=== PATIENT | female | born 1975 | race Caucasian/White ===

== ENCOUNTER → 2017-03-22 | Outpatient (CLI) | payer MEDICAID | LOC: MW.CHFP 15:29 | PROVIDERS: ATTEND Family Medicine | DX: R35.0 Frequency of micturition (principal) | CPT/HCPCS: 81001; 87086 ==

== ENCOUNTER → 2017-03-24 | Outpatient (CLI) | payer MEDICAID ==
[2017-03-24 09:40] LABS: CHLORIDE,CL 107 mmol/L (98-110); SODIUM,NA 140 mmol/L (136-146)
--- NOTE | 2017-03-24 20:19 | US ---
EXAM DATE: 03/24/17 PATIENT'S AGE: 41 Patient: VITA REEVES Facility: [place], [place] Site Site : [id number] Study: US Abdomen [id number]/12/2017 9:54:48 AM Ordering Physician: KODAK GARCIA Final Report: HISTORY: Right upper quadrant pain, known cirrhosis. Technique: Complete abdominal ultrasound. Comparison: No prior. Findings: Pancreatic tail is obscured by bowel gas as is a portion of the posterior head of the pancreas. Visualized portions of pancreas are unremarkable. Liver size and echogenicity are within normal limits. There is no focal hepatic mass. No intrahepatic or extrahepatic biliary ductal dilatation. The extrahepatic bile duct measures 2 mm in diameter. Gallbladder is normal without sludge, stones, wall thickening or pericholecystic fluid. Spleen size within normal limits at 10.9 cm. Right and left kidneys measure 10.9 and 11.3 cm in size, respectively. Kidneys demonstrate normal cortical thickness and cortical echogenicity. There is no renal mass. No shadowing urinary calculus seen. No hydronephrosis. No abdominal ascites. No abdominal aortic aneurysm. IVC as visualized appears patent. Impression: Unremarkable complete abdominal ultrasound. Dictated by Guru Chauhan MD @ Mar 24 2017 11:12AM (Electronic Signature) Report Signed by Proxy. HENRIETTA
== END ==
LOC: MW.US 08:41
PROVIDERS: ATTEND Family Medicine
DX: R10.11 Right upper quadrant pain (principal); E16.2 Hypoglycemia, unspecified; D47.3 Essential (hemorrhagic) thrombocythemia; D50.9 Iron deficiency anemia, unspecified; R41.3 Other amnesia; R42 Dizziness and giddiness; E83.50 Unspecified disorder of calcium metabolism; N92.0 Excessive and frequent menstruation with regular cycle
CPT/HCPCS: 36415; 76700; 76700-26; 80053; 82607; 82652; 82728; 82746; 82951; 83036; 83525; 83550; 84443; 85027; 85045; 85610

== ENCOUNTER 2017-06-14 07:37 | Day surgery (SDC) | payer MEDICAID, OTHER ==
[~2017-06-14 07:37] MED LIST: Lactated Ringers 1,000 ML IV SCH; ceFAZolin 2 GM in Premix Bag 1 BAG IV ONE
[2017-06-14] MEDS ORDERED: Bupivacaine 0.5% 30 ML SDV ONE (08:24)
[2017-06-14] MEDS ORDERED: Lidocaine 1% 20 ML MDV ONE (08:24)
[2017-06-14] MEDS ORDERED: Lidocaine 2% 5 ML SDV ONE (08:41)
[2017-06-14] MEDS ORDERED: Propofol 200 MG/20 ML SDV ONE ×3 (08:41→11:32)
[2017-06-14] MEDS ORDERED: Midazolam 1 MG/ML 2 ML SDV ONE (08:42)
[2017-06-14] MEDS ORDERED: fentaNYL 250 MCG/5 ML SDV ONE (08:42)
[2017-06-14] MEDS ORDERED: fentaNYL 100 MCG/2 ML SDV ONE (08:42)
[2017-06-14] MEDS ORDERED: HYDROmorphone 2 MG/ML Syringe ONE (10:05)
[2017-06-14] MEDS ORDERED: Neostigmine Methylsulfate 1 MG/ML 5 ML Syringe ONE (10:14)
--- NOTE | 2017-06-14 10:16 | PN ---
Preoperative Progress Note IDENTIFICATION: The patient is a 41-year-old female. PREOPERATIVE DIAGNOSIS: Fracture of distal fibula right ankle. PLANNED PROCEDURE: Open reduction and internal fixation of fracture of distal fibula right ankle. CONSENT: Signed and in the chart. ANESTHESIA: General. The patient confirms n.p.o. since midnight. HISTORY AND PHYSICAL: Completed by Dr. Ley and Danay with both signing off on the history and physical exam with no contraindications to surgery. ALLERGIES: Latex. MEDICATIONS: 1. Anoro Ellipta 62.5-25 inhalation aerosol daily. 2. Furosemide 40 mg oral tablet, 1 tab daily. 3. Gabapentin 300 mg oral capsule 1 capsule 3 times a day. 4. Iron tab 1 tablet 3 times a day. 5. Lactulose encephalopathy 10 g/15 mL oral solution, take 15 mL daily p.r.n. 6. Oxycodone HCl 5 mg oral tablet, 1 tab daily every 8 hours p.r.n., the patient says sometimes 1/2 to 1 tablet. 7. Pantoprazole sodium 40 mg oral tablet delayed release, 1 tablet daily. 8. Spironolactone 100 mg oral tablet, 1 tab daily. 9. Super B complex tab, 1 tab daily. 10.Vitamin C 1000 mg oral tablet, 1 tab daily. 11.Vitamin D3 5000 unit oral tab, 1 tab daily. 12.Xifaxan 550 mg oral tablet, 1 tab twice a day. PAST MEDICAL HISTORY: The patient has an extensive past medical history including histories of abdominal pain in the right upper quadrant, alcohol use disorder in sustained remission, mild COPD, muscle cramps, disorder of the bodies use of calcium, dysuria, cirrhosis, constipation, dizziness, headache, thrombocytosis, urinary frequency, vaginal bleeding, joint pain in the elbow, microcytic anemia postoperative state, right-sided back pain, and vulvar lesion. PAST SURGICAL HISTORY: 1992, back surgery due to trauma, 2 C-sections, history of gastric surgery for morbid obesity in 2002, history of hand surgery for fracture, 7 knee surgeries combined between left and right knees, and history of tonsillectomy. LABORATORY DATA: White blood cell 10.16, hemoglobin 15.5, hematocrit 46.4, and platelet count 293. Sodium 137, potassium 5.0, chloride 99, CO2 of 27, BUN 19, creatinine 0.8. Random glucose 75. INR 1.11. Chest x-ray; has no acute changes and EKG was normal sinus rhythm. The patient presents for open reduction and internal fixation of right fibular fracture surgery today. No contraindications to surgery noted. No guarantees given or implied. KULWANT SANTIAGO /[id number]
--- NOTE | 2017-06-14 11:13 | PCM.PREANE ---
Preanesthetic Assessment - Anesthesia/Transfusion/Family Hx Anesthesia History: Prior Anesthesia Without Reaction Other Type of Anesthesia Reaction Comment: states her "mother and herself has swelling after lengthy surgeries" Family History of Anesthesia Reaction: No Transfusion History: Prior Transfusion Without Reaction Intubation History: Unknown - Review of Systems General: No Symptoms Pulmonary: No Symptoms Cardiovascular: No Symptoms Gastrointestinal: No Symptoms Neurological: No Symptoms Other: Reports: None - Physical Assessment Height: 1.63 m Weight: 71.668 kg ASA Class: 3 Mental Status: Alert & Oriented x3 Airway Class: Mallampati = 2 Dentition: Reports: Normal Dentition Thyro-Mental Finger Breadths: 3 Mouth Opening Finger Breadths: 3 ROM/Head Extension: Full Lungs: Clear to Auscultation, Normal Respiratory Effort Cardiovascular: Regular Rate, Regular Rhythm - Lab Values: Laboratory Last Values Urine HCG, Qual NEGATIVE (NEGATIVE) 06/14/17 07:41 - Allergies Allergies/Adverse Reactions: Allergies Allergy/AdvReac Type Severity Reaction Status Date / Time latex Allergy Anaphylactic Verified 09/12/16 11:54 Shock - Blood Blood Available: No - Anesthesia Plan Pre-Op Medication Ordered: None - Acknowledgements Anesthesia Type Planned: General Anesthesia Pt an Appropriate Candidate for the Planned Anesthesia: Yes Alternatives and Risks of Anesthesia Discussed w Pt/Guardian: Yes Pt/Guardian Understands and Agrees with Anesthesia Plan: Yes PreAnesthesia Questionnaire HEENT History: Reports: None Cardiovascular History: Reports: None Respiratory History: Reports: COPD Gastrointestinal History: Reports: Cirrhosis, Other (See Below) (h/o esophagitis , h/o lymphocytic-plasmacytic colitis, hepatic encephalopathy) Genitourinary History: Reports: UTI, 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: Musculoskeletal History: Reports: Fracture Other Musculoskeletal History: hx fx elbow and back Neurological History: Reports: Neuropathy, Peripheral Psychiatric History: Reports: Anxiety Endocrine/Metabolic History: Reports: None Hematologic History: Reports: Blood Transfusion(s), Other (See Below) (iron deficiency) Immunologic History: Reports: None Oncologic (Cancer) History: Reports: None Dermatologic History: Reports: None - Infectious Disease History Infectious Disease History: Reports: None - Past Surgical History Head Surgeries/Procedures: Reports: None HEENT Surgical History: Reports: Tonsillectomy GI Surgical History: Reports: Bariatric Procedure, Colon, EGD Other GI Surgeries/Procedures: laparotomy 2 yrs after gastric bypass for bowel blockage Female Surgical History: Reports: Section (x2) Neurological Surgical History: Reports: Lumbar Spine Other Neurological Surgeries/Procedures: hx back surgery Musculoskeletal Surgical History: Reports: Arthroscopic Knee, Other (See Below) (hand surgery for fracture) Other Musculoskeletal Surgeries/Procedures:: knee surgery x7 - SUBSTANCE USE Smoking Status *Q: Current Every Day Smoker Tobacco Use Within Last Twelve Months: Cigarettes Second Hand Smoke Exposure: No Days Per Week of Alcohol Use: 7 Number of Drinks Per Day: 5 Total Drinks Per Week: 35 Recreational Drug Use History: No - HOME MEDS Home Medications: Home Meds Gabapentin [Neurontin] 1 tab PO TID 09/12/16 [History] Lactulose 15 ml PO BID PRN 09/12/16 [History] Ascorbic Acid [Vitamin C] 1,000 mg PO DAILY 06/12/17 [History] Cholecalciferol (Vitamin D3) [Vitamin D3] 5,000 units PO DAILY 06/12/17 [History ] Ferrous Gluconate 1 tab PO TID 06/12/17 [History] Furosemide 40 mg PO DAILY 06/12/17 [History] Pantoprazole Sodium 40 mg PO DAILY 06/12/17 [History] Rifaximin [Xifaxan] 1 tab PO BID 06/12/17 [History] Spironolactone [Aldactone] 100 mg PO DAILY 06/12/17 [History] Umeclidinium Brm/Vilanterol Tr [Anoro Ellipta 62.5-25 Mcg INH] 1 inhalation INH ASDIRECTED 06/12/17 [History] Vitamin B Complex & Vit C No.4 [Super B Complex] 1 tab PO DAILY 06/12/17 [ History] oxyCODONE 0.5 - 1 tab PO ASDIRECTED PRN 06/12/17 [History] - CURRENT (IN HOUSE) MEDS Current Meds: Current Medications Lactated Ringer's (Ringers, Lactated) 1,000 mls @ 125 mls/hr IV ASDIRECTED SIDDHARTHA Last Admin: 06/14/17 08:07 Dose: 125 mls/hr Discontinued Medications Bupivacaine HCl (Marcaine 0.5%) Confirm Administered Dose 30 ml .ROUTE .STK-MED ONE Stop: 06/14/17 08:25 Fentanyl (Sublimaze) Confirm Administered Dose 100 mcg .ROUTE .STK-MED ONE Stop: 06/14/17 08:43 Fentanyl (Sublimaze) Confirm Administered Dose 250 mcg .ROUTE .STK-MED ONE Stop: 06/14/17 08:43 Glycopyrrolate () Confirm Administered Dose 1 mg .ROUTE .STK-MED ONE Stop: 06/14/17 10:15 Hydromorphone HCl (Dilaudid) Confirm Administered Dose 2 mg .ROUTE .STK-MED ONE Stop: 06/14/17 10:06 Cefazolin Sodium/Dextrose 2 gm (/ Premix) 50 mls @ 100 mls/hr IV ONETIME ONE Stop: 06/13/17 23:21 Lidocaine (Xylocaine-Mpf 2%) Confirm Administered Dose 10 ml .ROUTE .STK-MED ONE Stop: 06/14/17 08:42 Lidocaine HCl (Xylocaine 1%) Confirm Administered Dose 20 ml .ROUTE .ST-MED ONE Stop: 06/14/17 08:25 Midazolam HCl (Versed 1 Mg/Ml) Confirm Administered Dose 2 mg .ROUTE .STK-MED ONE Stop: 06/14/17 08:43 Neostigmine Methylsulfate (Neostigmine) Confirm Administered Dose 5 mg .ROUTE .STK-MED ONE Stop: 06/14/17 10:15 Propofol (Diprivan 20 Ml) Confirm Administered Dose 400 mg .ROUTE .STK-MED ONE Stop: 06/14/17 08:42 Propofol (Diprivan 20 Ml) Confirm Administered Dose 200 mg .ROUTE .STK-MED ONE Stop: 06/14/17 10:26 Rocuronium [place] (Zemuron) Confirm Administered Dose 50 mg .ROUTE .STK-MED ONE Stop: 06/14/17 10:15
[2017-06-14] MEDS: fentaNYL 100 MCG/2 ML SDV IVPUSH PRN ×2 (12:50→12:55)
[2017-06-14] MEDS: HYDROmorphone 2 MG/ML Syringe IVPUSH ONE ×4 (13:00→13:20)
--- NOTE | 2017-06-14 13:15 | PCM.OPNOTE ---
- General Post-Op/Procedure Note Date of Surgery/Procedure: 06/14/17 Operative Procedure(s): open reduction and internal fixation right distal fibular fracture Findings: consistent with diagnosis Pre Op Diagnosis: right distal fibular fracture Post-Op Diagnosis: right distal fibular fracture Anesthesia Technique: General LMA Primary Surgeon: Homero Yen Anesthesia Provider: Ravin Mariscal Pathology: none EBL in mLs: 30 Complications: none Condition: Good Free Text/Narrative:: injectables: 8 cc 0.5% marcaine plain materials: 2-0 vicryl, 4-0 vicryl, stainless steel skin laisha, Collette distal lateral fibula plate, [place] 3.5 mm locking screws x 3 (10 mm, 16 mm, 20 mm lengths), [place] 3.5 mm non-locking screws x 4 (12 mm, 14 mm, 18 mm, 26 mm lengths), Collette DBM bone gel 1 cc
--- NOTE | 2017-06-14 13:33 | PCM.POSTAN ---
POST ANESTHESIA ASSESSMENT - MENTAL STATUS Mental Status: Alert, Oriented - RESPIRATORY Respiratory Status: Respiratory Rate WNL, Airway Patent, O2 Saturation Stable - CARDIOVASCULAR CV Status: Pulse Rate WNL, Blood Pressure Stable - GASTROINTESTINAL GI Status: No Symptoms - PAIN Pain Score: 6 - POST OP HYDRATION Hydration Status: Adequate & Stable - OBSERVATIONS Free Text/Narrative:: no anesthesia problems
[2017-06-14] MEDS ORDERED: Acetaminophen/HYDROcodone 325-10 MG Tab PO ONE (13:58)
[2017-06-14 15:37] VITALS: BP 117/78
--- NOTE | 2017-06-14 16:03 | CR ---
EXAMINATION: Right ankle HISTORY: ORIF COMPARISON: 06/01/2017 TECHNIQUE: 3 views FINDINGS/IMPRESSION: Operative control films demonstrate screw and plate hardware fixating a distal fibular fracture. Remaining osseous structures and joint spaces appear intact.
--- NOTE | 2017-06-14 23:46 | OR ---
SURGEON: Homero Yen DPM DATE OF PROCEDURE: 06/14/2017 PREOPERATIVE DIAGNOSIS: Right distal fibular fracture. POSTOPERATIVE DIAGNOSIS: Right distal fibular fracture. PROCEDURE PERFORMED: Open reduction with internal fixation of right distal fibula fracture. ANESTHESIA: General. COMPLICATIONS: None. SPECIMENS: None. ESTIMATED BLOOD LOSS: 30 mL. MATERIALS: 2-0 Vicryl, 4-0 Vicryl, skin laisha, [place] DBM gel 1 mL, [place] distal lateral fibular plate x1; [place] 3.5 mm locking screws, one 10 mm length, one 16 mm length, one 20 mm length screw; and [place] 3.5 mm nonlocking screw, one 12 mm length, one 14 mm length, one 18 mm length, and one 26 mm length screws. INJECTABLES: 8 mL of 0.5% Marcaine plain. INDICATIONS FOR PROCEDURE: The patient is a 41-year-old female, who suffered a fall after tripping on her rug at home resulting in a right distal fibular fracture. The patient has an extensive surgical history and is very prone to injury. She has handled other surgeries well and I made clear that she is prone to injury and falls. Based on both the displacement of the fracture and the probability of further falls and injury my opinion after discussing with the patient was that she would be best treated with operative intervention to include open reduction and internal fixation of the distal fibular fracture of the right ankle. At her initial appointment, she had moderate edema over the right lower extremity and was placed in a nonweightbearing cast for 10 days. The cast was removed yesterday and the edema had fully resolved. There were no fracture blisters. Minimal ecchymosis about the right ankle. The risks and benefits were discussed with the patient to include but not limited to, infection, blood loss, neurovascular injury, wound complications, nonunion, posttraumatic arthritis, thromboembolic disease, and risk of anesthesia and she understood these risks involved. DESCRIPTION OF THE PROCEDURE: The patient was brought to the operating room and placed on the operating table in a supine position and underwent general anesthesia without any significant difficulty. Tourniquet was applied to the proximal aspect of the right thigh. The right lower extremity was then prepped in normal fashion to include the thigh, knee, leg, foot, and ankle and draped appropriately. The tourniquet was inflated to a pressure of 325 mmHg. The fibula was approached via lateral approach. The incision was roughly 12 cm in length and it was taken down through skin and subcutaneous tissue down to bone with care being taken to retract any muscle bellies, neurovascular structures out of the way. Incision was further taken to the subperiosteal dissection, via subperiosteal dissection taken down to the distal fibula bone. The fracture was oblique and nearly crescent-shaped running from proximal posterior to distal anterior. A small bony defect forming part of the fracture line was noted on the lateral aspect of the distal fibula. One 3.5 mm x 26 mm lag screw was placed across the fracture site and using intraoperative fluoroscopy, it was noted to be placed in the desired position to achieve partial reduction. Collette eight-hole distal lateral fibula plate was utilized for fixation. Two 3.5 mm nonlocking screws and one 3.5 mm locking screw were placed in the fibula proximal to the fracture line. Additionally, one 3.5 mm nonlocking screw and two 3.5 mm locking screws were placed distal to the fracture in the lateral malleolus. This allowed the stable fixation of the fracture. The surgical site was copiously irrigated with normal saline. A 1 mL syringe of [place] DBM gel was used to fill the small bony defect at the fracture site. The incision was closed with 2-0 Vicryl suture followed by 4-0 Vicryl. The tourniquet was deflated and the superficial skin was closed with skin laisha. Local block consisting of 8 mL of 0.5% Marcaine plain was injected about the surgical site. The incision was dressed with Betadine-soaked Xeroform gauze, 4x4 gauze, and Kerlix roll. The right lower extremity was placed in a short-leg cast. The patient was brought to the recovery room in stable condition. The patient will be discharged with written and verbal instructions for care of right lower extremity and follow up in my office due to the patient's tendency to fall and injure herself. I opted for applying a short leg cast today to provide maximal protection with the understanding that the patient and her notify me at any time this cast could be removed should post operative pain from likely edema necessitate and the cast may be removed as early as tomorrow in the office or sooner if necessary. However, I feel that even if the cast is on for short period of time, it may prevent injury through any fall that the patient may have postoperatively today and tomorrow and as long as the cast is in place. KULWANT SANTIAGO /[id number] MTDD
== END 2017-06-14 14:48 | disposition home or self-care (01) ==
LOC: MW.SDS 07:37
PROVIDERS: ATTEND Podiatrist Foot & Ankle Surgery
DX: S82.831A Other fracture of upper and lower end of right fibula, initial encounter for closed fracture (principal); F41.9 Anxiety disorder, unspecified; J44.9 Chronic obstructive pulmonary disease, unspecified; E16.2 Hypoglycemia, unspecified; F10.10 Alcohol abuse, uncomplicated; Z91.040 Latex allergy status; Z79.899 Other long term (current) drug therapy; W01.0XXA Fall on same level from slipping, tripping and stumbling without subsequent striking against object, initial encounter; Y92.009 Unspecified place in unspecified non-institutional (private) residence as the place of occurrence of the external cause; Z98.84 Bariatric surgery status; Z98.890 Other specified postprocedural states
CPT/HCPCS: 27792; 76001; 81025; A9270; J1170; J2250; J3010; J7120; 01480; C1713; J2704